=== PATIENT | male | born 1980 | race Caucasian/White ===

== ENCOUNTER 2018-03-07 20:15 | Emergency (ER) | payer OTHER ==
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
== END 2018-03-07 21:27 | disposition home or self-care (01) ==
LOC: ER 20:15
DX: Z04.3 Encounter for examination and observation following other accident (principal); V49.50XA Passenger injured in collision with unspecified motor vehicles in traffic accident, initial encounter; F79 Unspecified intellectual disabilities
CPT/HCPCS: 99281